=== PATIENT | male | born 1965 | race Caucasian/White ===

== ENCOUNTER 2019-11-28 20:12 | Emergency (ER) | payer MEDICAID ==
--- NOTE | 2019-11-28 21:00 | EDM.PDOC ---
ED HPI GENERAL MEDICAL PROBLEM - General Chief Complaint: Lower Extremity Injury/Pain Stated Complaint: LEFT KNEE PAIN Time Seen by Provider: 11/28/19 20:45 Source of Information: Reports: Patient History Limitations: Reports: No Limitations - History of Present Illness INITIAL COMMENTS - FREE TEXT/NARRATIVE: 54 yo male with recent onset of L knee swelling. He is not aware of injury. Doesn't hurt a lot unless he tries to fully flex or extend it. His primary is in [employer]. 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: Other (see below) (none) left knee Pain Score (Numeric/FACES): 7 - Related Data Allergies Allergy/AdvReac Type Severity Reaction Status Date / Time No Known Allergies Allergy Verified 11/28/19 20:35 Home Meds: Home Meds azaTHIOprine [Imuran] 50 mg PO DAILY 11/28/19 [History] predniSONE [Prednisone] 30 mg PO DAILY 11/28/19 [History] Past Medical History Gastrointestinal History: Reports: Other (See Below) Other Gastrointestinal History: ulcerative cholitis Musculoskeletal History: Reports: Fracture Neurological History: Reports: Brain Injury, Concussion, Head Trauma - Past Surgical History HEENT Surgical History: Reports: Tonsillectomy, Other (See Below) Other HEENT Surgeries/Procedures: metal in eye Social & Family History - Tobacco Use Smoking Status *Q: Never Smoker - Caffeine Use Caffeine Use: Reports: Soda, Tea - Recreational Drug Use Recreational Drug Use: No Review of Systems - Review of Systems Review Of Systems: See Below Constitutional: Reports: No Symptoms Musculoskeletal: Reports: Joint Pain (L knee with swelling) Skin: Reports: No Symptoms ED EXAM, GENERAL - Physical Exam Exam: See Below Exam Limited By: No Limitations General Appearance: Alert, WD/WN, No Apparent Distress Back Exam: Normal Inspection Extremities: Joint Swelling (effusion L knee.), Limited Range of Motion, Other ( no ligamentous laxity, no definite joint line tenderness. ). No: No Pedal Edema , Increased Warmth, Mottled, Redness Neurological: Alert, Oriented, CN II-XII Intact, Normal Cognition, No Motor/ Sensory Deficits Skin Exam: Warm, Dry, Intact, Normal Color, No Rash Course - Vital Signs Last Recorded V/S: Last Vital Signs Temp 36.3 C 11/28/19 20:36 Pulse 98 11/28/19 20:36 Resp 20 11/28/19 20:36 BP 130/82 11/28/19 20:36 Pulse Ox 97 11/28/19 20:36 Departure - Departure Time of Disposition: 20:59 Disposition: Home, Self-Care 01 Condition: Fair Clinical Impression: Acute meniscal tear of left knee Qualifiers: Encounter type: initial encounter Qualified Code(s): S83.207A - Unspecified tear of unspecified meniscus, current injury, left knee, initial encounter - Discharge Information *PRESCRIPTION DRUG MONITORING PROGRAM REVIEWED*: No *COPY OF PRESCRIPTION DRUG MONITORING REPORT IN PATIENT MALORIE: No Instructions: Meniscus Tear Referrals: PCP,None [Primary Care Provider] - Additional Instructions: Acetaminophen as needed for pain relief. PETER for compression/support. Walk as little as possible. F/U with orthopedics. Sepsis Event Note - Evaluation Sepsis Screening Result: No Definite Risk - Focused Exam Vital Signs: Vital Signs Temp Pulse Resp BP Pulse Ox 11/28/19 20:36 36.3 C 98 20 130/82 97 Date Exam was Performed: 11/28/19 Time Exam was Performed: 20:55
== END 2019-11-28 21:08 | disposition home or self-care (01) ==
LOC: JP.ED 20:12
DX: S83.207A Unspecified tear of unspecified meniscus, current injury, left knee, initial encounter (principal); X58.XXXA Exposure to other specified factors, initial encounter
CPT/HCPCS: 99282; 99283

== ENCOUNTER 2021-04-09 16:26 | Emergency (ER) | payer MEDICAID ==
[2021-04-09] MEDS ORDERED: Ketorolac 60 MG/2 ML SDV IM ONE (16:57)
[2021-04-09] MEDS ORDERED: Acetaminophen/oxyCODONE 325-5 MG Tab PO STA (16:58)
--- NOTE | 2021-04-09 17:03 | EDM.PDOC ---
ED HPI GENERAL MEDICAL PROBLEM - General Chief Complaint: Lower Extremity Injury/Pain Stated Complaint: HURT PELVIS/HIP Time Seen by Provider: 04/09/21 16:50 Source of Information: Reports: Patient History Limitations: Reports: No Limitations - History of Present Illness INITIAL COMMENTS - FREE TEXT/NARRATIVE: 55 yo male with a PHx of ulcerative colitis presents with L hip pain that has progressively gotten worse over the past couple of days. No injury. No fever. No hx of the same. Can't bear weight now. Took acetaminophen at home. Here with his . Has not been to the clinic. 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 left upper thigh and groin Pain Score (Numeric/FACES): 8 - Related Data Allergies Allergy/AdvReac Type Severity Reaction Status Date / Time No Known Allergies Allergy Verified 04/09/21 16:52 Home Meds: Home Meds Adalimumab [Humira(Cf) Pen] 1 injection SQ ASDIRECTED 04/09/21 [History] Hydrocodone/Acetaminophen [Hydrocodon-Acetaminophen 5-325] 1 - 2 each PO Q6H PRN #16 tablet 04/09/21 [Rx] Past Medical History Gastrointestinal History: Reports: Other (See Below) Other Gastrointestinal History: ulcerative cholitis Musculoskeletal History: Reports: Fracture Neurological History: Reports: Brain Injury, Concussion, Head Trauma - Past Surgical History HEENT Surgical History: Reports: Tonsillectomy, Other (See Below) Other HEENT Surgeries/Procedures: metal in eye Social & Family History - Caffeine Use Caffeine Use: Reports: Soda, Tea Review of Systems - Review of Systems Review Of Systems: See Below Constitutional: Reports: No Symptoms Musculoskeletal: Reports: Joint Pain (L hip) Skin: Reports: No Symptoms Neurological: Reports: No Symptoms ED EXAM, GENERAL - Physical Exam Exam: See Below Exam Limited By: No Limitations General Appearance: Alert, WD/WN, No Apparent Distress Eye Exam: Bilateral Eye: Normal Inspection Ears: Normal External Exam, Normal Canal, Hearing Grossly Normal Ear Exam: Bilateral Ear: Auricle Normal, Canal Normal Nose: Normal Inspection, No Blood Throat/Mouth: Normal Inspection, Normal Lips, Normal Voice, No Airway Compromise Head: Atraumatic, Normocephalic Neck: Normal Inspection Respiratory/Chest: No Respiratory Distress, No Accessory Muscle Use Cardiovascular: Regular Rate, Rhythm Extremities: Normal Inspection, No Pedal Edema, Limited Range of Motion (very painful with movement of the L hip. Only painful with palpation right over the L hip jt. ). No: Normal Range of Motion, Non-Tender Neurological: Alert, Oriented, CN II-XII Intact, Normal Cognition, No Motor/Sensory Deficits Psychiatric: Normal Affect, Normal Mood Skin Exam: Warm, Dry, Intact, Normal Color, No Rash Course - Vital Signs Last Recorded V/S: Last Vital Signs Temp 36.6 C 04/09/21 16:51 Pulse 97 04/09/21 16:51 Resp 15 04/09/21 16:51 BP 121/82 04/09/21 16:51 Pulse Ox 95 04/09/21 16:51 - Orders/Labs/Meds Orders: Active Orders 24 hr Category Date Time Status Hip Min 2V or 3V Lt [CR] Stat Exams 04/09/21 16:57 Taken Labs: Laboratory Tests 04/09/21 Range/Units 17:15 C-Reactive Protein 1.63 H (0.0-0.3) mg/dL Meds: Medications Discontinued Medications Generic Name Dose Route Start Last Admin Trade Name Freq PRN Reason Stop Dose Admin Ketorolac Tromethamine 60 mg 04/09/21 16:57 04/09/21 17:07 Ketorolac 60 Mg/2 Ml Sdv IM 04/09/21 16:58 60 mg ONETIME ONE Administration Oxycodone/Acetaminophen 1 tab 04/09/21 16:58 04/09/21 17:04 Acetaminophen/Oxycodone 325-5 Mg Tab PO 04/09/21 16:59 1 tab ONETIME STA Administration - Radiology Interpretation Free Text/Narrative:: L hip X-ray- Departure - Departure Time of Disposition: 17:50 Disposition: Home, Self-Care 01 Condition: Fair Clinical Impression: Left hip pain - Discharge Information *PRESCRIPTION DRUG MONITORING PROGRAM REVIEWED*: No *COPY OF PRESCRIPTION DRUG MONITORING REPORT IN PATIENT MALORIE: No Prescriptions: Hydrocodone/Acetaminophen [Hydrocodon-Acetaminophen 5-325] 1 - 2 each PO Q6H PRN #16 tablet PRN Reason: Pain Instructions: Joint Pain, [id number] Referrals: PCP,None [Primary Care Provider] - Forms: ED Department Discharge Additional Instructions: Take hydrocodone or acetaminophen for pain relief. Crutch walking with weight bearing as tolerated. F/U with orthopedics for further evaluation, someone will call you soon for an appt. Sepsis Event Note (ED) - Evaluation Sepsis Screening Result: No Definite Risk - Focused Exam Vital Signs: Vital Signs Temp Pulse Resp BP Pulse Ox 04/09/21 16:51 36.6 C 97 15 121/82 95 04/09/21 16:41 36.6 C 97 15 121/82 95 - My Orders Last 24 Hours: My Active Orders 04/09/21 16:57 Hip Min 2V or 3V Lt [CR] Stat - Assessment/Plan Last 24 Hours: My Active Orders 04/09/21 16:57 Hip Min 2V or 3V Lt [CR] Stat
--- NOTE | 2021-04-10 09:12 | CR ---
Hip Min 2V or 3V Lt CLINICAL HISTORY: Pain, no injury FINDINGS: There is some minimal joint space narrowing and minimal acetabular spurring. There is a mild cam deformity in the subcapital region of the lateral femoral neck. There is a small ossification off the superior acetabular labrum. IMPRESSION: Mild degenerative change Possible mild femoral acetabular impingement of the combined type
== END 2021-04-09 18:06 | disposition home or self-care (01) ==
LOC: JP.ED 16:26
DX: M25.552 Pain in left hip (principal)
CPT/HCPCS: 36415; 73502; 86140; 96372; 99283; A9270; J1885

== ENCOUNTER 2021-09-15 02:00 | Emergency (ER) | payer MEDICAID ==
[2021-09-15] MEDS ORDERED: Sodium Chloride 0.9% 10 ML Syringe FLUSH PRN (02:08)
[2021-09-15] MEDS ORDERED: HYDROmorphone 1 MG/ML Syringe IM ONE (02:22)
[2021-09-15] MEDS ORDERED: Methocarbamol 500 MG Tab PO ONE (02:22)
--- NOTE | 2021-09-15 02:29 | EDM.PDOC ---
ED HPI GENERAL MEDICAL PROBLEM - General Chief Complaint: Back Pain or Injury Stated Complaint: L SIDE, MIDDLE BACK PAIN Time Seen by Provider: 09/15/21 02:07 Source of Information: Reports: Patient, Family () History Limitations: Reports: No Limitations - History of Present Illness INITIAL COMMENTS - FREE TEXT/NARRATIVE: Eligio is a 56-year-old male presenting to the ED for evaluation of left-sided flank and low back pain that has been ongoing for the last several days. The patient was in his usual state of health when he was laying in bed tonight and had acute onset of severe left lateral low back pain causing him to yell out in agony. 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 He denies any significant previous injury to his back. He is followed by [facility] and they are monitoring his kidney function as well as his BNP for heart failure. His last BNP was 389 and his last creatinine was 1.6. At the time it appeared that he was somewhat dehydrated with elevation in his BUN to creatinine ratio. Patient has a history significant for ulcerative colitis for which she gets biw eekly Humira shots. He is also on Mirapex for restless leg syndrome and furosemide to try to improve his kidney function and reduce his heart failure. The patient has a very antalgic gait and is very stiff with changing positions. He denies any distal numbness or tingling. The pain does not go down either leg. He has not had any problems with bowel or bladder control. Both he and the are concerned that his pain was due to his kidneys but he has pain much lower than where the kidneys reside. Left Flank Pain Score (Numeric/FACES): 3 - Related Data Allergies Allergy/AdvReac Type Severity Reaction Status Date / Time No Known Allergies Allergy Verified 09/15/21 02:13 Home Meds: Home Meds Adalimumab [Humira(Cf) Pen] 1 injection SQ ASDIRECTED 04/09/21 [History] Furosemide [Lasix] 20 mg PO DAILY 09/15/21 [History] Pramipexole Di-HCl [Mirapex] 0.125 mg PO DAILY 09/15/21 [History] Ubidecarenone [Co Q-10] 1 tab PO ASDIRECTED 09/15/21 [History] methocarbamoL [Methocarbamol] 750 mg PO QID PRN #28 tablet 09/15/21 [Rx] Past Medical History Gastrointestinal History: Reports: Other (See Below) Other Gastrointestinal History: ulcerative cholitis Musculoskeletal History: Reports: Fracture Neurological History: Reports: Brain Injury, Concussion, Head Trauma - Infectious Disease History Infectious Disease History: Reports: Chicken Pox - Past Surgical History HEENT Surgical History: Reports: Tonsillectomy, Other (See Below) Other HEENT Surgeries/Procedures: metal in eye Social & Family History - Tobacco Use Tobacco Use Status *Q: Never Tobacco User - Caffeine Use Caffeine Use: Reports: Soda - Recreational Drug Use Recreational Drug Use: Yes Recreational Drug Type: Reports: Marijuana/Hashish ED ROS GENERAL - Review of Systems Review Of Systems: See Below Constitutional: Reports: No Symptoms HEENT: Reports: No Symptoms Respiratory: Reports: No Symptoms Cardiovascular: Reports: No Symptoms Endocrine: Reports: No Symptoms GI/Abdominal: Reports: No Symptoms : Reports: Flank Pain Musculoskeletal: Reports: Back Pain Skin: Reports: No Symptoms Neurological: Reports: No Symptoms Psychiatric: Reports: No Symptoms Hematologic/Lymphatic: Reports: No Symptoms ED EXAM,LOWER BACK PAIN/INJURY - Physical Exam Exam: See Below Exam Limited By: No Limitations General Appearance: Alert, Anxious, Moderate Distress Head: Atraumatic, Normocephalic Neck: Normal Inspection, Supple Respiratory/Chest: No Respiratory Distress, Lungs Clear, Normal Breath Sounds Cardiovascular: Normal Peripheral Pulses, Regular Rate, Rhythm, No JVD, No Murmur GI/Abdominal: Normal Bowel Sounds, Soft, Non-Tender Back Exam: Decreased Range of Motion, Muscle Spasm (Muscle spasm of the left latissimus dorsi and paraspinal muscles), Paraspinal Tenderness (Significant tenderness to palpation over the left paraspinal muscles). No: CVA Tenderness (R), CVA Tenderness (L), Vertebral Tenderness Extremities: Normal Inspection, Normal Range of Motion Neurological: Alert, Normal Mood/Affect, Normal Dorsiflexion, CN II-XII Intact, Normal Plantar Flexion, Normal Gait, Normal Reflexes, No Motor/Sensory Deficits, Oriented x 3. No: Straight Leg Raise (L), Straight Leg Raise (R) Psychiatric: Normal Affect, Anxious Skin Exam: Warm, Dry, Intact, Normal Color, No Rash Course - Vital Signs Last Recorded V/S: Last Vital Signs Temp 36.9 C 09/15/21 02:14 Pulse 99 09/15/21 02:14 Resp 18 09/15/21 02:14 BP 133/95 H 09/15/21 02:14 Pulse Ox 94 L 09/15/21 02:14 - Orders/Labs/Meds Orders: Active Orders 24 hr Category Date Time Status Sodium Chloride 0.9% [Saline Flush] Med 09/15/21 02:08 Active 10 ml FLUSH ASDIRECTED PRN Saline Lock Insert [OM.PC] Routine Oth 09/15/21 02:08 Ordered Medication Orders Sodium Chloride (Sodium Chloride 0.9% 10 Ml Syringe) 10 ml FLUSH ASDIRECTED PRN PRN Reason: Keep Vein Open Labs: Laboratory Tests 09/15/21 09/15/21 09/15/21 Range/Units 02:30 02:36 02:36 WBC 6.4 (4.5-11.0) K/uL RBC 5.46 (4.30-5.90) M/uL Hgb 15.8 H (12.0-15.0) g/dL Hct 47.6 (40.0-54.0) % MCV 87 (80-98) fL MCH 29 (27-31) pg MCHC 33 (32-36) % Plt Count 264 (150-400) K/uL Neut % (Auto) 47.4 (36-66) % Lymph % (Auto) 26.4 (24-44) % [place] % (Auto) 22.4 H (2-6) % Eos % (Auto) 3.0 (2-4) % Baso % (Auto) 0.8 (0-1) % Sodium 142 (140-148) mmol/L Potassium 4.3 (3.6-5.2) mmol/L Chloride 106 (100-108) mmol/L Carbon Dioxide 25 (21-32) mmol/L Anion Gap 10.8 (5.0-14.0) mmol/L BUN 24 H (7-18) mg/dL Creatinine 1.3 (0.8-1.3) mg/dL Est Cr Clr Drug Dosing 64.20 mL/min Estimated GFR (MDRD) 57 L (>60) Glucose 86 (74-106) mg/dL Calcium 8.6 (8.5-10.1) mg/dL Total Bilirubin 0.3 (0.2-1.0) mg/dL AST 25 (15-37) U/L ALT 49 (12-78) U/L Alkaline Phosphatase 196 H (46-116) U/L C-Reactive Protein 3.15 H (0.0-0.3) mg/dL Total Protein 7.3 (6.4-8.2) g/dL Albumin 3.0 L (3.4-5.0) g/dL Globulin 4.3 H (2.3-3.5) g/dL Albumin/Globulin Ratio 0.7 L (1.2-2.2) Urine Color Yellow (YELLOW) Urine Appearance Clear (CLEAR) Urine pH 5.5 (5.0-8.0) Ur Specific [place] >= 1.030 (1.008-1.030) Urine Protein 100 H (NEGATIVE) mg/dL Urine Glucose (UA) Negative (NEGATIVE) mg/dL Urine Ketones Negative (NEGATIVE) mg/dL Urine Occult Blood Small H (NEGATIVE) Urine Nitrite Negative (NEGATIVE) Urine Bilirubin Negative (NEGATIVE) Urine Urobilinogen 0.2 (0.2-1.0) EU/dL Ur Leukocyte Esterase Negative (NEGATIVE) Urine RBC 0-5 (0-5) Urine WBC 0-5 (0-5) Ur Epithelial Cells Few Amorphous Sediment Not seen Urine Bacteria Few Urine Mucus Not seen Meds: Medications Generic Name Dose Route Start Last Admin Trade Name Dionisioq PRN Reason Stop Dose Admin Sodium Chloride 10 ml 09/15/21 02:08 Sodium Chloride 0.9% 10 Ml Syringe FLUSH ASDIRECTED PRN Keep Vein Open Discontinued Medications Generic Name Dose Route Start Last Admin Trade Name Lavonne PRN Reason Stop Dose Admin Hydromorphone HCl 1 mg 09/15/21 02:22 09/15/21 02:31 Hydromorphone 1 Mg/Ml Syringe IM 09/15/21 02:23 1 mg ONETIME ONE Administration Methocarbamol 1,000 mg 09/15/21 02:22 09/15/21 02:31 Methocarbamol 500 Mg Tab PO 09/15/21 02:23 1,000 mg ONETIME ONE Administration - Radiology Interpretation Free Text/Narrative:: I reviewed the images of the CT of the lumbar spine as well as the report. The report is as follows: FINDINGS: : The vertebral bodies are normal in height and they are in anatomic alignment. There is no sign of fracture or subluxation. 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 T12-L1: Normal. L1-2: Minimal right lateral disc bulging without spinal stenosis. There is mild bilateral lateral disc bulging into the neural foramina without contact with the exiting nerve roots. Normal disc height. L2-3: Mild central and right lateral disc bulging and mild ligamentum flavum hypertrophy, resulting in mild spinal stenosis. Moderate left and mild right lateral disc bulging into the neural foramina, without contact with the exiting nerve roots. Mild loss of disc height from disc degenerative disease. L3-4: Moderate spinal stenosis from congenital narrowing and mild diffuse disc bulging along with mild ligamentum flavum hypertrophy. Moderate left lateral disc bulging into the neural foramina impinges upon the left L3 nerve root, without effacement of a significant amount of perineural fat. Mild right lateral disc bulging into the neural foramina without contact with the exiting nerve root. Severe L3-4 disc degenerative disease. L4-5: Severe spinal stenosis previous by congenital narrowing, a moderate sized broad central disc herniation with a moderate amount of disc material extruded inferiorly from the disc space, and mild ligamentum flavum hypertrophy. Moderate right lateral disc bulging into the neural foramina impinges upon the right L4 nerve root, without effacement of a significant amount of perineural fat. Mild left lateral disc bulging into the neural foramina without contact with the exiting nerve root. Moderate loss of disc height from disc degenerative disease. Mild bilateral facet arthropathy. L5-S1: Normal. There are multiple small lymph nodes scattered throughout the retroperitoneum and the throughout the pelvis. No lymphadenopathy is evident. The visualized abdominal viscera is otherwise normal in appearance. IMPRESSION: Severe spinal stenosis at L4-5. Moderate spinal stenosis at L3-4. Mild spinal stenosis at L2-3. Lateral disc bulging into the neural foramina on the left at L3-4, on the right at L4-5, coming into contact with the exiting nerve roots. Please note that all CT scans at this facility use dose modulation, iterative reconstruction, and/or weight-based dosing when appropriate to reduce radiation dose to as low as reasonably achievable. Dictated by Shawn Hassan MD @ 09/15/2021 4:44:13 AM - Re-Assessments/Exams Free Text/Narrative Re-Assessment/Exam: 09/15/21 03:41 the patient's labs showing a normal CBC with a leukocyte count of 6.4, hemoglobin of 15.8, hematocrit of 47.6 and platelet count of 264,000. The comprehensive metabolic panel shows a sodium 142, potassium 4.3, chloride 106, carbon of 25, BUN of 24 with a creatinine 1.3 and a glucose of 86. The AST, ALT and alkaline phosphatase are all normal. The C-reactive protein is elevated at 3.15. Urinalysis is negative. The CT of the lumbar spine shows severe DJD with collapse of multiple disks including vacuum sign at L2-L3, bulging disks at L3- L4, L4-L5, and L5-S1. In addition, there is significant osteoarthritis of the spine with bony hypertrophy. There is no acute evidence for fracture. The patient's previous creatinine was 1.6 which is now improved at 1.3. Urinalysis was unremarkable for any significant blood. The patient was given methocarbamol 1000 mg p.o. and Dilaudid 1 mg IV with improvement in his pain symptoms. It appears that his pain is predominantly musculoskeletal in nature likely due to the severe degenerative disc disease and osteoarthritis of the lumbar spine. My plan is to put him on methocarbamol 750 mg 4 times a day as needed for muscle spasm and [place] used sparingly for only moderate to severe pain. Patient was given a prescription for both to fill in the morning. The patient is instructed to follow-up with his primary care provider if not improving over the course of the next 4 to 5 days. He may benefit from physical therapy if not improving. Indications to return to the ED were discussed. Departure - Departure Time of Disposition: 04:49 Disposition: Home, Self-Care 01 Clinical Impression: Acute lumbar myofascial strain Qualifiers: Encounter type: initial encounter Qualified Code(s): S39.012A - Strain of muscle, fascia and tendon of lower back, initial encounter Degenerative joint disease (DJD) of lumbar spine Qualifiers: Spinal osteoarthritis complication: other spinal osteoarthritis Qualified Code(s): M47.896 - Other spondylosis, lumbar region - Discharge Information Prescriptions: methocarbamoL [Methocarbamol] 750 mg PO QID PRN #28 tablet PRN Reason: Muscle Spasm - Painful Instructions: Lumbosacral Strain Referrals: Monique Herrera MD [Primary Care Provider] - Forms: ED Department Discharge Care Plan Goals: Your work-up today has shown that your pain is arising from your lumbar spine which has severe degenerative disc disease with collapse of multiple discs as well as severe osteoarthritis of the lumbar spine causing impingement on nerve roots causing your pain. The plan is to treat the muscle spasm with methocarbamol 750 mg 4 times a day as needed for spasm and to sparingly use hydrocodone for pain control. Please use Tylenol as the basis of your pain control with occasional use of the hydrocodone for moderate to severe pain. Sepsis Event Note (ED) - Evaluation Sepsis Screening Result: No Definite Risk - Focused Exam Vital Signs: Vital Signs Temp Pulse Resp BP Pulse Ox 09/15/21 02:14 36.9 C 99 18 133/95 H 94 L - Problem List & Annotations (1) Acute lumbar myofascial strain SNOMED Code(s): 443042712, [id number], [id number] Code(s): S39.012A - STRAIN OF MUSCLE, FASCIA AND TENDON OF LOWER BACK, INIT Status: Acute Priority: Medium Current Visit: Yes Qualifiers: Encounter type: initial encounter Qualified Code(s): S39.012A - Strain of muscle, fascia and tendon of lower back, initial encounter (2) Degenerative joint disease (DJD) of lumbar spine Status: Acute Priority: Medium Current Visit: Yes Qualifiers: Spinal osteoarthritis complication: other spinal osteoarthritis Qualified Code(s): M47.896 - Other spondylosis, lumbar region - Problem List Review Problem List Initiated/Reviewed/Updated: Yes - My Orders Last 24 Hours: My Active Orders 09/15/21 02:08 Sodium Chloride 0.9% [Saline Flush] 10 ml FLUSH ASDIRECTED PRN Saline Lock Insert [OM.PC] Routine - Assessment/Plan Last 24 Hours: My Active Orders 09/15/21 02:08 Sodium Chloride 0.9% [Saline Flush] 10 ml FLUSH ASDIRECTED PRN Saline Lock Insert [OM.PC] Routine
--- NOTE | 2021-09-15 04:44 | CRLCT ---
For Patients: As a result of the Century Cures Act, medical imaging exams and procedure reports are released immediately into your electronic medical record. You may view this report before your referring provider. If you have questions, please contact your health care provider. INDICATION: Low back pain COMPARISON: None available TECHNIQUE: CT examination of the lumbar spine is performed with spiral technique without contrast. Two mm thick axial, sagittal and coronal reconstructions were made. Please note that all CT scans at this facility use dose modulation, iterative reconstruction, and/or weight-based dosing when appropriate to reduce radiation dose to as low as reasonably achievable. FINDINGS: : The vertebral bodies are normal in height and they are in anatomic alignment. There is no sign of fracture or subluxation. 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 T12-L1: Normal. L1-2: Minimal right lateral disc bulging without spinal stenosis. There is mild bilateral lateral disc bulging into the neural foramina without contact with the exiting nerve roots. Normal disc height. L2-3: Mild central and right lateral disc bulging and mild ligamentum flavum hypertrophy, resulting in mild spinal stenosis. Moderate left and mild right lateral disc bulging into the neural foramina, without contact with the exiting nerve roots. Mild loss of disc height from disc degenerative disease. L3-4: Moderate spinal stenosis from congenital narrowing and mild diffuse disc bulging along with mild ligamentum flavum hypertrophy. Moderate left lateral disc bulging into the neural foramina impinges upon the left L3 nerve root, without effacement of a significant amount of perineural fat. Mild right lateral disc bulging into the neural foramina without contact with the exiting nerve root. Severe L3-4 disc degenerative disease. L4-5: Severe spinal stenosis previous by congenital narrowing, a moderate sized broad central disc herniation with a moderate amount of disc material extruded inferiorly from the disc space, and mild ligamentum flavum hypertrophy. Moderate right lateral disc bulging into the neural foramina impinges upon the right L4 nerve root, without effacement of a significant amount of perineural fat. Mild left lateral disc bulging into the neural foramina without contact with the exiting nerve root. Moderate loss of disc height from disc degenerative disease. Mild bilateral facet arthropathy. L5-S1: Normal. There are multiple small lymph nodes scattered throughout the retroperitoneum and the throughout the pelvis. No lymphadenopathy is evident. The visualized abdominal viscera is otherwise normal in appearance. IMPRESSION: Severe spinal stenosis at L4-5. Moderate spinal stenosis at L3-4. Mild spinal stenosis at L2-3. Lateral disc bulging into the neural foramina on the left at L3-4, on the right at L4-5, coming into contact with the exiting nerve roots. Please note that all CT scans at this facility use dose modulation, iterative reconstruction, and/or weight-based dosing when appropriate to reduce radiation dose to as low as reasonably achievable. Dictated by Shawn Hassan MD @ 09/15/2021 4:44:13 AM (Electronically Signed)
== END 2021-09-15 05:14 | disposition home or self-care (01) ==
LOC: JP.ED 02:00
DX: S39.012A Strain of muscle, fascia and tendon of lower back, initial encounter (principal); M47.896 Other spondylosis, lumbar region; X50.9XXA Other and unspecified overexertion or strenuous movements or postures, initial encounter; Y92.009 Unspecified place in unspecified non-institutional (private) residence as the place of occurrence of the external cause
CPT/HCPCS: 36415; 72131; 80053; 81001; 85025; 86140; 96372; 99284; A9270; J1170

== ENCOUNTER 2021-10-04 02:12 | Emergency (ER) | payer MEDICAID ==
[2021-10-04] MEDS ORDERED: Ketorolac 30 MG/ML SDV IM ONE (02:19)
[2021-10-04] MEDS ORDERED: methylPREDNISolone Sodium Succinate 125 MG/2 ML SDV IVPUSH ONE (02:19)
[2021-10-04] MEDS ORDERED: HYDROmorphone 0.5 MG/0.5 ML Syringe IVPUSH ONE (02:19)
--- NOTE | 2021-10-04 02:27 | EDM.PDOC ---
ED HPI GENERAL MEDICAL PROBLEM - General Chief Complaint: Neck Problem Stated Complaint: NECK PAIN Time Seen by Provider: 10/04/21 02:13 Source of Information: Reports: Patient History Limitations: Reports: No Limitations - History of Present Illness INITIAL COMMENTS - FREE TEXT/NARRATIVE: 56-year-old male with a very intense upper neck pain that is worsened over the past 36 hours. He was just bending forward picking up bolts off the floor when he felt a twinge in his upper neck, that is progressed into a very sharp stabbing pain especially with movement. He was unable to sleep tonight, took his last hydrocodone and is so uncomfortable that he had to come in to be seen. Interestingly he was seen 2 weeks ago for a similar sudden back pain, and several months ago with a similar sudden hip pain. I asked him about his back pain and that resolved in "just a day". He has had no fevers or chills, no specific trauma, no recent illness. The pain started the night before last, and was much worse when he woke up this morning and has been getting worse all day. Duration: Hour(s): (Pain for 36 hours) Location: Reports: Neck Quality: Reports: Sharp, Stabbing (Upper neck) Worsens with: Reports: Movement Associated Symptoms: Reports: No Other Symptoms neck pain Pain Score (Numeric/FACES): 9 - Related Data Allergies Allergy/AdvReac Type Severity Reaction Status Date / Time No Known Allergies Allergy Verified 10/04/21 02:17 Home Meds: Home Meds Adalimumab [Humira(Cf) Pen] 1 injection SQ ASDIRECTED 04/09/21 [History] Furosemide [Lasix] 20 mg PO DAILY 09/15/21 [History] Pramipexole Di-HCl [Mirapex] 0.125 mg PO DAILY 09/15/21 [History] Ubidecarenone [Co Q-10] 1 tab PO ASDIRECTED 09/15/21 [History] methocarbamoL [Methocarbamol] 750 mg PO QID PRN #28 tablet 09/15/21 [Rx] Acetaminophen/HYDROcodone [HYDROcodone-Acetaminophen 5-325 MG *] 1 tab PO ASDIRECTED PRN 10/04/21 [History] Past Medical History Gastrointestinal History: Reports: Other (See Below) Other Gastrointestinal History: ulcerative cholitis Musculoskeletal History: Reports: Fracture Neurological History: Reports: Brain Injury, Concussion, Head Trauma - Infectious Disease History Infectious Disease History: Reports: Chicken Pox - Past Surgical History HEENT Surgical History: Reports: Tonsillectomy, Other (See Below) Other HEENT Surgeries/Procedures: metal in eye Social & Family History - Caffeine Use Caffeine Use: Reports: Soda ED ROS GENERAL - Review of Systems Review Of Systems: See Below Constitutional: Denies: Fever, Chills HEENT: Denies: Rhinitis Respiratory: Denies: Shortness of Breath Cardiovascular: Reports: No Symptoms GI/Abdominal: Reports: No Symptoms, Other (Currently stable but the patient does have ulcerative colitis) : Reports: No Symptoms Musculoskeletal: Reports: Neck Pain Skin: Reports: Other Neurological: Denies: Dizziness, Headache, Difficulty Walking Psychiatric: Reports: No Symptoms ED EXAM, UPPER BACK/NECK PAIN - Physical Exam Exam: See Below Exam Limited By: No Limitations General Appearance: Alert, Moderate Distress (Almost tearful, very anxious and hyper dramatic) Eye Exam: Bilateral Eye: Normal Inspection Head Exam: Atraumatic, Normocephalic Neck Exam: Paraspinous Muscle Tender (Extremely tender to palpation over the upper paraspinous cervical area, just below the skull especially on the right side. Increased pain with rotation. The trapezius and rhomboids are not tender to palpation) Neurologic: No Motor/Sensory Deficits, Normal Mood/Affect, Oriented x 3 Psychiatric: Anxious Skin Exam: Normal Color Course - Vital Signs Last Recorded V/S: Last Vital Signs Temp 98.2 F 10/04/21 02:22 Pulse 116 H 10/04/21 02:22 Resp 18 10/04/21 02:22 BP 137/99 H 10/04/21 02:22 Pulse Ox 91 L 10/04/21 02:22 - Orders/Labs/Meds Meds: Medications Discontinued Medications Generic Name Dose Route Start Last Admin Trade Name Freq PRN Reason Stop Dose Admin Hydromorphone HCl 0.5 mg 10/04/21 02:19 10/04/21 02:32 Hydromorphone 0.5 Mg/0.5 Ml Syringe IVPUSH 10/04/21 02:20 0.5 mg ONETIME ONE Administration Ketorolac Tromethamine 30 mg 10/04/21 02:36 10/04/21 02:38 Ketorolac 30 Mg/Ml Sdv IVPUSH 10/04/21 02:37 30 mg ONETIME ONE Administration Methylprednisolone Sodium Succinate 125 mg 10/04/21 02:19 10/04/21 02:34 Methylprednisolone Sodium Succinate 125 Mg/2 Ml Sdv IVPUSH 10/04/21 02:20 125 mg ONETIME ONE Administration - Re-Assessments/Exams Free Text/Narrative Re-Assessment/Exam: 10/04/21 02:27 Reviewed this patient's record on [employer], he only has received the 2 small hydrocodone prescriptions for his hip pain and back pain. An IV was started, patient was given 30 mg of IV Toradol, 0.5 mg of Dilaudid, and 125 mg of Solu- Medrol. 10/04/21 03:05 Patient had marked decrease in discomfort but was still having sharp pains, a soft cervical collar was placed. He was discharged with 10 doses of hydrocodone for extra pain control and can increase activity as tolerated. Recheck with his primary provider in 2 to 3 days if not improving satisfactorily. Departure - Departure Time of Disposition: 03:41 Disposition: Home, Self-Care 01 Clinical Impression: Neck pain, acute - Discharge Information Instructions: Muscle Pain, Adult Referrals: PCP,None [Primary Care Provider] - Forms: ED Department Discharge Care Plan Goals: Ibuprofen or naproxen for the next 24 to 48 hours would be beneficial if able. Take stronger pain medicines if needed and increase activity as tolerated. 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 Sepsis Event Note (ED) - Focused Exam Vital Signs: Vital Signs Temp Pulse Resp BP Pulse Ox 10/04/21 02:22 98.2 F 116 H 18 137/99 H 91 L 10/04/21 02:18 98.2 F 116 H 18 137/99 H 91 L
[2021-10-04] MEDS ORDERED: Ketorolac 30 MG/ML SDV IVPUSH ONE (02:36)
== END 2021-10-04 04:00 | disposition home or self-care (01) ==
LOC: JP.ED 02:12
DX: M54.2 Cervicalgia (principal)
CPT/HCPCS: 96374; 96375; 99283; J1170; J1885; J2930